=== PATIENT | male | born 1945 | race Caucasian/White ===

== ENCOUNTER 2017-06-13 07:29 | Day surgery (SDC) | payer MEDICARE, OTHER ==
[2017-06-08 11:45] LABS: BASOPHILS 0.5 %; BASOPHILS ABSOLUTE 0.03 10/3/uL (0.0-0.16); HEMATOCRIT 38.1 % (40.0-51.0); HEMOGLOBIN 12.6 g/dL (13.6-17.8); IMMATURE GRANULOCYTES 0.2 %; IMMATURE GRANULOCYTES ABSOLUTE 0.01 10/3/uL (0.0-0.11); LYMPHOCYTES ABSOLUTE 1.19 10/3/uL (0.67-4.30); MEAN CORPUS HGB CONC 33.1 g/dL (32.0-36.0); MEAN CORPUSCULAR HEMOGLOB 30.1 pg (26.0-34.0); MEAN CORPUSCULAR VOLUME 90.9 fL (80-100); MONOCYTES 6.3 %; MONOCYTES ABSOLUTE 0.36 10/3/uL (0.21-1.20); NEUTROPHILS ABSOLUTE 3.69 10/3/uL (2.02-8.40); PLATELET COUNT 169 10/3/uL (150-400); RED CELL COUNT 4.19 10/6/uL (4.7-6.1); WHITE BLOOD CELLS 5.7 10/3/uL (4.5-10.5)
[2017-06-08 11:49] LABS: MANUAL DIFF NO %
[2017-06-08 11:52] LABS: PARTIAL THROMBO TIME 26.2 SEC (22.5-37.2); PROTIME (NOT ORD) 13.2 SEC (12.0-14.5)
[2017-06-08 11:58] LABS: CALCIUM, SERUM 8.6 MG/DL (8.5-10.4); CHLORIDE, SERUM 106 MMOL/L (96-112); CO2 (CARBON DIOXIDE) 28 MMOL/L (24-34); CREATININE 1.04 MG/DL (0.70-1.30); GFR AFRICAN AMERICAN 82 ML/MIN (>=60); GFR NON AFRICAN AMERICAN 71 ML/MIN (>=60); POTASSIUM, SERUM 3.8 MMOL/L (3.5-5.3); SODIUM, SERUM 140 MMOL/L (135-148)
[2017-06-08 12:00] LABS: BUN (BLOOD UREA NITROGEN) 21 MG/DL (6-23); GLUCOSE, SERUM 216 MG/DL (60-99)
[~2017-06-13] VITALS: Ht 182.9 cm; Wt 117.9 kg
--- NOTE | ~2017-06-13 | OP ---
Record Of Operation [facility] [address] [place]. [address] NAME: MICHELLE CHAN : 43 [place]US : [place] [facility] [place] [id number] AGE: 72 ADM/REG DATE : 06/13/17 MR#: [id number] REPORT SERV DATE: 06/13/17 DICTATED BY: SILVANA MARTÍNEZ DATE: 06/13/17 REPORT STATUS : Draft TRANSCRIBED BY: MODAbi DATE: 06/13/17 DATE OF PROCEDURE: 06/13/2017 PREOPERATIVE DIAGNOSIS: Right renal calculi. POSTOPERATIVE DIAGNOSIS: Right renal calculi. PROCEDURE PERFORMED: Cystoscopy, right retrograde pyelogram, right flexible ureterorenoscopy, holmium laser stone fragmentation, and stent placement. ANESTHESIA: General. ESTIMATED BLOOD LOSS: Less than 5 mL. INDICATIONS: This is a 72-year-old white male, who has been found to have enlarging stones in his right kidney. Preop CT has also shown a very capacious left renal pelvis with a tiny stone present there as well. We are planning endoscopic management of the right renal stones and retrograde studies. Risks of infection, bleeding, failure, need for further surgery have been discussed. PROCEDURE IN DETAIL: The patient was taken to the operating room and underwent a general anesthetic. He was placed in the lithotomy position on the table, and his external genitalia were sterilely prepped and draped. The 22-Slovak cystoscope sheath with 30-degree lens was inserted under direct vision per urethra with the aid of the video monitor. The anterior urethra was normal. 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 The bladder itself was inspected and was mildly trabeculated. Single orifices were seen bilaterally. There were no stones or mass lesions in the bladder. A right retrograde pyelogram was obtained showing a normal caliber ureter and a normal looking right collecting system. The images were grainy and it was difficult to see the stones. An 0.038 guidewire was advanced up into the collecting system of the kidney under fluoroscopic guidance. A 9.5-Slovak/11 Slovak ureteral access sheath was advanced over the guidewire up into the mid ureter. A second guidewire was placed through the access sheath and advanced up into the kidney. The sheath and obturator were then replaced over one of the two guidewires leaving the other in place as a safety wire. The flexible ureteroscope was then advanced through the access sheath and up into the mid ureter and on up into the collecting system of the kidney with no significant ureteral findings noted. The collecting system was thoroughly inspected. There was a small stone adherent to the calyceal wall in an upper pole calyx. There were two larger stones each measuring about perhaps 8 mm maybe 9 in size in the lower pole calyx. The 200 micron laser fiber was used to fragment the small upper pole stone and dislodge it from the wall of the calyx, and the 200 micron laser fiber was then used to fragment both of the lower pole calculi down into small pieces. When it was judged that all the pieces were in the 1 to 2 mm range or smaller, the collecting system was reinspected with no significant residual stones noted, and the scope was withdrawn down through the ureter again with no significant findings noted. The cystoscope was then reinserted into the bladder and a left retrograde pyelogram was obtained showing a normal caliber ureter up to a level right at around the Record Of Operation [address] [address] NAME: MICHELLE CHAN : 43 STATUS : REG [facility]#: [id number] AGE: 72 ADM/REG DATE : 06/13/17 MR#: [id number] REPORT SERV DATE: 06/13/17 DICTATED BY: SILVANA MARTÍNEZ DATE: 06/13/17 REPORT STATUS : Draft TRANSCRIBED BY: IESHA DATE: 06/13/17 [facility]. The renal pelvis was quite capacious. 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 I was able to advanced the ureteral catheter up into the collecting system of the kidney. The ureter drained promptly. The renal pelvis had delayed drainage. The scope was then reinserted over the previously placed guidewire and a 6-Slovak x 28 cm Contour stent was advanced over the guidewire such that the proximal end of the stent was observed to coil in the pelvis of the kidney under fluoroscopic guidance and the distal end of the stent was visually observed to coil in the bladder following removal of the guidewire. The stent was left connected to a string dangle which was taped to the patient's penis. An 18-Slovak Lopez catheter was placed to gravity drainage and the patient was taken to recovery in stable condition. DS/MODL Silvana Martínez M.D. / [id number] CC: Venkata Hogan D.O.
[~2017-06-13 07:29] MED LIST: ASAB PO; BP MED PO; CARDURA8 MG PO; CELEBREX PO; CELEBREX2 PO; CIALIS10 MG PO; CRESTOR PO; CRESTOR10 PO; EYE DROP OP; GLUCCHONDR PO; GLUCPH PO; HYZAAR 50/12.51 TAB PO; LEVAQUIN750 MG PO; METPAKSF PO; MIRAPEX1 MG PO; MIRAPEX250 PO; MIRAPEX5 PO; MULTIPLE VIT PO; MVI PO; NEUR300 PO; PRILOSEC40 MG PO; REQUIP2 PO; REQUIP25 PO; REQUIP5 PO; SINGULAIR1 PO; TIMOLOL MAL0.5 % OP; TIMOLOL MAL0.5 % OPH; ZEGERID1 CA1 PO; ZYLET1 ML OP; [UNRECOGNIZED DRUG - OTHER]; [UNRECOGNIZED DRUG - OTHER] PO
== END 2017-06-13 13:17 | disposition home or self-care (01) ==
LOC: SDC 07:29
PROVIDERS: Urology
PROC: 0T768DZ Dilation of Right Ureter with Intraluminal Device, Via Natural or Artificial Opening Endoscopic (ICD-10-PCS; 2017-06-13)
PROC: 0TC08ZZ Extirpation of Matter from Right Kidney, Via Natural or Artificial Opening Endoscopic (ICD-10-PCS; 2017-06-13)
PROC: BT1DYZZ Fluoroscopy of Right Kidney, Ureter and Bladder using Other Contrast (ICD-10-PCS; 2017-06-13)
PROC: 0TF38ZZ Fragmentation in Right Kidney Pelvis, Via Natural or Artificial Opening Endoscopic (ICD-10-PCS; principal; 2017-06-13 08:45)
DX: N20.0 Calculus of kidney (principal); I10 Essential (primary) hypertension; K21.9 Gastro-esophageal reflux disease without esophagitis; E11.9 Type 2 diabetes mellitus without complications; G47.33 Obstructive sleep apnea (adult) (pediatric); G25.81 Restless legs syndrome; Z99.81 Dependence on supplemental oxygen; Z79.82 Long term (current) use of aspirin; Z79.899 Other long term (current) drug therapy; Z87.442 Personal history of urinary calculi; Z98.890 Other specified postprocedural states
CPT/HCPCS: 74420; 80048; 82962; 85025; 85610; 85730; 93005; A9270-GY; C1894; C2617; J2405; J2710; J3010; Q9967